=== PATIENT | female | born 1995 | race Caucasian/White ===

== ENCOUNTER 2020-02-15 07:03 | Inpatient (IN) | payer BC ==
[~2020-02-15 07:03] MED LIST: Bupivacaine 0.25% 10 ML SDV ONE
[2020-02-15] MEDS ORDERED: Lactated Ringers 1,000 ML ONE (07:30)
[2020-02-15] MEDS ORDERED: Sodium Chloride 0.9% 10 ML Syringe FLUSH PRN (07:38)
[2020-02-15] MEDS ORDERED: Ampicillin 2 GM in Sodium Chloride 0.9% 100 ML IV ONE (07:38)
[2020-02-15] MEDS ORDERED: Nalbuphine 10 MG/1 ML Vial IVPUSH PRN (07:38)
[2020-02-15] MEDS ORDERED: Acetaminophen 325 MG Tab PO PRN ×2 (07:38→18:39)
[2020-02-15] MEDS ORDERED: Bupivacaine/fentaNYL/NS 100 ML Bag EPIDUR PRN ×2 (07:44→12:20)
[2020-02-15] MEDS ORDERED: fentaNYL 100 MCG/2 ML SDV EPIDUR PRN ×2 (07:44→12:20)
[2020-02-15] MEDS ORDERED: diphenhydrAMINE 50 MG/ML SDV IVPUSH PRN ×2 (07:44→12:20)
[2020-02-15] MEDS ORDERED: ePHEDrine 50 MG/ML SDV IVPUSH PRN ×2 (07:44→12:20)
[2020-02-15] MEDS ORDERED: Oxytocin/Lactated Ringers 10 UNIT/1,000 ML BAG IV SCH ×3 (07:45→18:39)
--- NOTE | 2020-02-15 07:50 | PCM.LDHP ---
L&D History of Present Illness - General Date of Service: 02/15/20 Admit Problem/Dx: Patient Status Order with Admit Dx/Problem 02/15/20 07:38 Patient Status [ADT] Routine Admission Diagnosis/Problem Admission Diagnosis/Problem 39 weeks gestation of Source of Information: Patient History Limitations: Reports: No Limitations - History of Present Illness Introduction:: Gabriela Puente is a 24-year-old at 39 weeks 3 days (ADELITA 02/19/2020) who presents for elective induction of labor. She has been having some irregular contractions but nothing regular. Denies any leaking of fluid or vaginal bleeding. Reports good movement. Timing/Duration: Reports: intermittent (Contractions) Quality: Reports: Pressure Severity: Mild Improves with: Reports: None Worsens with: Reports: None Associated Symptoms: Denies: vaginal bleeding, vaginal discharge, vaginal fluid Present Illness Comments:: Gabriela Puente is a 24-year-old G1, P0 at 39 weeks 3 days (ADELITA 02/19/2020) who presents for elective induction of labor. She has had routine care with myself, Dr. Lemons, starting at 12 weeks gestational age. She was diagnosed with chlamydia at her initial OB appointment and treated. She had to be retreated on 09/06/2019. She had negative test of cure x2 tests after the second treatment. She received Tdap vaccine on 12/09/2019. She received flu vaccine through work on 12/14/2019. She was diagnosed with COVID-19 on 10/27/2019 and did not have any long-term effects from this. Normal anatomy ultrasound with low- lying placenta initially with resolution on repeat examination. She had Prequel testing that was normal with a female . She had to moderate risk factors for preeclampsia and was started on aspirin 81 mg at 12 weeks gestational age. This is complicated by: * GBS positive status -patient with positive GBS swab at her appointment on 01/27/2020. Patient to be treated with antibiotics in labor * Chlamydia infection in first and second trimester -patient diagnosed with chlamydia on her initial exam as well as 1 month later. She was treated x2 treatments as well as her partner. She had negative test of cure x2 tests afterwards. * COVID-19 infection during -patient diagnosed with COVID-19 on 10/27/2019. She did not have any long-lasting effects after infection. * To moderate risk factors for preeclampsia -patient has to moderate risk factors for preeclampsia including obesity and nulliparous woman. She was started on aspirin 81 mg at her initial visit on 08/09/2019. * ASCUS Pap smear -patient with ASCUS Pap smear at her initial visit and recommend for repeat Pap smear after delivery THERAPIST PHYS history G1: Current labs Blood type: O+ Antibody screen: Negative First trimester hematocrit/hemoglobin: 43.5%/14.6 on 06/17/2019 Platelets: 384 on 06/17/2019 Urine culture: Mixed pawan suggestive of contamination Rubella status: Immune Hepatitis B surface antigen: Negative RPR: Negative HIV: Negative Gonorrhea: Negative on 08/09/2019 Chlamydia: Positive on 08/09/2019 Gonorrhea: Negative on 09/06/2019 Chlamydia: Positive on 09/06/2019 Genetic testing: Normal Prequel testing, female infant Anatomy ultrasound: Normal anatomy, no abnormalities, posterior placenta, no previa, 30th percentile on most recent ultrasound on 12/08/2019 One hour glucose tolerance test: 125 Second trimester hematocrit/hemoglobin: 40.3%/13.2 on 11/23/2019 Platelets: 411 on 11/23/2019 Gonorrhea: Negative on 11/18/2019 Chlamydia: Negative on 11/18/2019 Gonorrhea: Negative on 01/27/2020 Chlamydia: Negative on 01/27/2020 GBS status: Positive Past Medical History - Past Health History Medical/Surgical History: Denies Medical/Surgical History THERAPIST PHYS History: Reports: : 1 Para: 0 - Infectious Disease History Infectious Disease History: Reports: Other (See Below) (COVID-19 infection during ) - Past Surgical History HEENT Surgical History: Reports: None GI Surgical History: Reports: None Female Surgical History: Reports: None Social & Family History - Tobacco Use Tobacco Use Status *Q: Never Tobacco User Tobacco Use Within Last Twelve Months: No - Tobacco Core Measures Tobacco Use/Smoking Within Last 30 Days: No Smokeless Tobacco Use in Last 30 Days: No - Alcohol Use Alcohol Use History: No Alcohol Use in Last Twelve Months: No - Recreational Drug Use Recreational Drug Use: No Drug Use in Last 12 Months: No - Living Situation & Occupation Living situation: Reports: , with Spouse Occupation: Employed H&P Review of Systems - Review of Systems: Review Of Systems: See Below General: Denies: Fever, Chills, Malaise, Fatigue HEENT: Denies: Headaches, Rhinitis, Post Nasal Drip, Sinus Congestion, Sore Throat, Visual Changes Pulmonary: Denies: Shortness of Breath, Wheezing, Pleuritic Chest Pain, Cough Cardiovascular: Denies: Chest Pain, Palpitations, Dyspnea on Exertion, Orthopnea Gastrointestinal: Reports: Diarrhea. Denies: Abdominal Pain, Constipation, Nausea, Vomiting Genitourinary: Denies: Dysuria, Frequency, Burning, Pain, Urgency Musculoskeletal: Reports: Back Pain (and hip pain of ) Skin: Denies: Rash, Lesions Psychiatric: Denies: Depression, Anxiety Hematologic/Lymphatic: Denies: Anemia L&D Exam - Exam Exam: See Below - OB Specific Contraction Duration (sec): 45-75 Contraction Frequency (min): 5-20 Contraction Intensity: Mild Movement: Active Heart Tones: Present Heart Tones per Min: 140 (+15 x 15 accelerations, no decelerations) Heart Rate (FHR) Variability: Moderate (6-25 bmp) Presentation: Vertex Estimated Weight: 7.5-8 lbs by Leopolds - Lundberg Score Lundberg Score Cervix Position: Anterior Lundberg Score Consistency: Soft Lundberg Score Effacement: >80% (80%) Lundberg Score Dilation: 3-4 cm (4.5 cm) Lundberg Score Infant's Station: -2 Lundberg Score Total: 10 - Exam General: Alert, Oriented HEENT: Conjunctiva Clear, EOMI Neck: Supple, Trachea Midline Lungs: Clear to Auscultation, Normal Respiratory Effort Cardiovascular: Regular Rate, Regular Rhythm GI/Abdominal Exam: Soft, Non-Tender, No Distention, Other (Gravid). No: Guarding, Rigid, Rebound Genitourinary: Normal external exam Extremities: Normal Inspection, Non-Tender, Pedal Edema (1+) Skin: Warm, Dry, Intact Psychiatric: Alert, Normal Affect, Normal Mood - Problem List (1) 39 weeks gestation of SNOMED Code(s): 04654413 ICD Code: Z3A.39 - 39 WEEKS GESTATION OF Status: Acute Current Visit: Yes (2) GBS (group B Streptococcus carrier), +RV culture, currently SNOMED Code(s): 8685954078834, 935175823, 7524612665889 ICD Code: O99.820 - STREPTOCOCCUS B CARRIER STATE COMPLICATING Status: Acute Current Visit: Yes (3) Chlamydia infection affecting in second trimester SNOMED Code(s): 4547075250444 ICD Code: O98.812 - OTH MATERNAL INFEC/PARASTC DISEASES COMP PREG, SECOND TRI; A74.9 - CHLAMYDIAL INFECTION, UNSPECIFIED Status: Acute Current Visit: Yes (4) Obesity affecting SNOMED Code(s): 303232538650, 778594979504 ICD Code: O99.210 - OBESITY COMPLICATING , UNSPECIFIED TRIMESTER Status: Acute Current Visit: Yes (5) COVID-19 affecting in second trimester SNOMED Code(s): 656266600, 335856354 ICD Code: O98.512 - OTH VIRAL DISEASES COMPLICATING , SECOND TRIME STER; U07.1 - COVID-19 Status: Acute Current Visit: Yes Problem List Initiated/Reviewed/Updated: Yes Orders Last 24hrs: Active Orders 24 hr Category Date Time Status Patient Status [ADT] Routine ADT 02/15/20 07:38 Ordered Activity as Tolerated [RC] PFP Care 02/15/20 07:38 Ordered Communication Order [RC] ASDIRECTED Care 02/15/20 07:38 Ordered Communication Order [RC] ASDIRECTED Care 02/15/20 07:45 Active Cooling Warming Measures [RC] ASDIRECTED Care 02/15/20 07:45 Active Heart Tones [RC] ASDIRECTED Care 02/15/20 07:38 Ordered Heart Tones [RC] ASDIRECTED Care 02/15/20 07:38 Ordered Non Stress Test [RC] PER UNIT ROUTINE Care 02/15/20 07:38 Ordered Notify Provider Vital Signs [RC] PRN Care 02/15/20 07:40 Ordered Notify Provider [RC] ASDIRECTED Care 02/15/20 07:44 Active Notify Provider [RC] ASDIRECTED Care 02/15/20 07:45 Active Notify Provider [RC] PFP Care 02/15/20 07:38 Ordered Notify Provider [RC] PRN Care 02/15/20 07:38 Ordered Oxygen Therapy [RC] ASDIRECTED Care 02/15/20 07:44 Active Peripheral IV Care [RC] . DIRECTED Care 02/15/20 07:38 Ordered Pulse Oximetry [RC] ASDIRECTED Care 02/15/20 07:45 Active Pump Management, Intrathecal [RC] ASDIRECTED Care 02/15/20 07:39 Ordered Vital Signs [RC] PER UNIT ROUTINE Care 02/15/20 07:38 Ordered Vital Signs [RC] Q1H Care 02/15/20 07:44 Active Regular Diet [DIET] Diet 02/15/20 Breakfast Ordered CBC WITH AUTO DIFF [HEME] Routine Lab 02/15/20 07:38 Ordered COMPREHENSIVE METABOLIC PN,CMP [CHEM] Routine Lab 02/15/20 07:38 Ordered PROTEIN/CREATININE RATIO,URINE [URCHEM] Routine Lab 02/15/20 07:38 Ordered RAPID PLASMA REAGIN,RPR [CHEM] Routine Lab 02/15/20 07:38 Ordered Acetaminophen [TylenoL] Med 02/15/20 07:38 Ordered 650 mg PO Q6H PRN Ampicillin 1 gm Med 02/15/20 11:45 Ordered Sodium Chloride 0.9% [Normal Saline] 50 ml IV Q4H Ampicillin 2 gm Med 02/15/20 07:38 Ordered Sodium Chloride 0.9% [Normal Saline] 100 ml IV ONETIME Bupivacaine/fentaNYL/NS [fentaNYL/Bupivacaine/NS 2 MCG- Med 02/15/20 07:44 Ordered 0.125% 100 ML] 100 ml EPIDUR ASDIRECTED PRN Lactated Ringers [Ringers, Lactated] 1,000 ml Med 02/15/20 07:45 Ordered IV ASDIRECTED Nalbuphine [Nubain] Med 02/15/20 07:38 Ordered 10 mg IVPUSH Q2H PRN Oxytocin/Lactated Ringers [Pitocin in LR 10 Units/1,000 Med 02/15/20 07:45 Ordered ML] 10 unit in 1,000 ml IV .CONTINUOUS Oxytocin/Lactated Ringers [Pitocin in LR 10 Units/1,000 Med 02/15/20 07:45 Ordered ML] 10 unit in 1,000 ml IV TITRATE Sodium Chloride 0.9% [Saline Flush] Med 02/15/20 07:38 Ordered 10 ml FLUSH ASDIRECTED PRN diphenhydrAMINE [Benadryl] Med 02/15/20 07:44 Ordered 25 mg IVPUSH Q6H PRN ePHEDrine [ePHEDrine sulfate] Med 02/15/20 07:44 Ordered 5 mg IVPUSH ASDIRECTED PRN fentaNYL [Sublimaze] Med 02/15/20 07:44 Ordered 100 mcg EPIDUR Q3H PRN Electronic Heart Tones Ext w TOCO [WOMSER] Oth 02/15/20 07:38 Ordered Routine Electronic Heart Tones Internal [WOMSER] Per Unit Oth 02/15/20 07:38 Ordered Routine Peripheral IV Insertion Adult [OM.PC] Routine Oth 02/15/20 07:38 Ordered Resuscitation Status Routine Resus Stat 02/15/20 07:38 Ordered Medication Orders Acetaminophen (Tylenol) 650 mg PO Q6H PRN PRN Reason: Pain (Mild 1-3) and fever Diphenhydramine HCl (Benadryl) 25 mg IVPUSH Q6H PRN PRN Reason: pruritis Ephedrine Sulfate (Ephedrine Sulfate) 5 mg IVPUSH ASDIRECTED PRN PRN Reason: Hypotension Fentanyl (Sublimaze) 100 mcg EPIDUR Q3H PRN PRN Reason: Pain Fentanyl/Bupivacaine HCl (Fentanyl/Bupivacaine/Ns 2 Mcg-0.125% 100 Ml) 100 ml EPIDUR ASDIRECTED PRN PRN Reason: Pain Lactated Ringer's (Ringers, Lactated) 1,000 mls @ 100 mls/hr IV ASDIRECTED SAKINA Ampicillin Sodium 2 gm/ Sodium (Chloride) 100 mls @ 200 mls/hr IV ONETIME ONE Stop: 02/15/20 08:07 Ampicillin Sodium 1 gm/ Sodium (Chloride) 50 mls @ 100 mls/hr IV Q4H SAKINA Oxytocin/Lactated Ringer's (Pitocin In Lr 10 Units/1,000 Ml) 10 unit in 1,000 mls @ 12 mls/hr IV TITRATE SAKINA; Protocol Oxytocin/Lactated Ringer's (Pitocin In Lr 10 Units/1,000 Ml) 10 unit in 1,000 mls @ 100 mls/hr IV .CONTINUOUS SAKINA Nalbuphine HCl (Nubain) 10 mg IVPUSH Q2H PRN PRN Reason: Pain Sodium Chloride (Saline Flush) 10 ml FLUSH ASDIRECTED PRN PRN Reason: Keep Vein Open Assessment/Plan Comment:: Gabriela Puente is a 24-year-old G1, P0 at 39 weeks 3 days (ADELITA 02/19/2020) who presents for elective induction of labor Refer to observation for elective induction of labor Start Pitocin for induction of labor Continuous monitoring Place IV and have Lactated Ringer's at 125 ml/hr May have small amounts of regular diet Activity as tolerated May have epidural as desired Plans to breast-feed after delivery Start on ampicillin 2 g now and have 1 g every 4 hours after for GBS prophylaxis CBC, CMP, RPR and urine protein/creatinine ratio for routine labs. Patient had blood pressure of 136/74 on admission and will get the CMP and urine protein/creatinine ratio to monitor for any increased risk for preeclampsia Anticipate vaginal delivery unless otherwise indicated Kevan Lemons MD 8:13 AM 02/15/2020
[2020-02-15] MEDS: Lactated Ringers 1,000 ML IV SCH ×3 (08:32→14:25)
[2020-02-15] MEDS: Ampicillin 1 GM in Sodium Chloride 0.9% 50 ML IV SCH ×2 (12:21→15:59)
--- NOTE | 2020-02-15 13:06 | PCM.PREANE ---
Preanesthetic Assessment - Procedure Proposed Procedure: Epidural - Anesthesia/Transfusion/Family Hx Anesthesia History: Prior Anesthesia Without Reaction Family History of Anesthesia Reaction: No Transfusion History: No Prior Transfusion(s) - Review of Systems General: Fatigue Pulmonary: No Symptoms Cardiovascular: No Symptoms Gastrointestinal: Abdominal Pain (labor) Neurological: No Symptoms Other: Reports: None - Physical Assessment Vital Signs: Last Vital Signs Temp 36.9 C 02/15/20 07:40 Pulse 98 02/15/20 07:40 Resp 18 02/15/20 07:40 BP 136/74 02/15/20 07:40 Pulse Ox 98 02/15/20 07:40 Height: 1.6 m Weight: 104.326 kg ASA Class: 2 Mental Status: Alert & Oriented x3 Airway Class: Mallampati = 1 Dentition: Reports: Normal Dentition Thyro-Mental Finger Breadths: 3 Mouth Opening Finger Breadths: 3 ROM/Head Extension: Full Lungs: Clear to Auscultation, Normal Respiratory Effort Cardiovascular: Regular Rate, Regular Rhythm - Lab Values: Laboratory Last Values WBC 10.97 K/mm3 (3.98-10.04) H 02/15/20 07:55 RBC 4.27 M/mm3 (3.98-5.22) 02/15/20 07:55 Hgb 12.5 gm/dl (11.2-15.7) 02/15/20 07:55 Hct 38.8 % (34.1-44.9) 02/15/20 07:55 MCV 90.9 fl (79.4-94.8) 02/15/20 07:55 MCH 29.3 pg (25.6-32.2) 02/15/20 07:55 MCHC 32.2 g/dl (32.2-35.5) 02/15/20 07:55 RDW Std Deviation 44.8 fL (36.4-46.3) 02/15/20 07:55 Plt Count 328 K/mm3 (182-369) D 02/15/20 07:55 MPV 10.7 fl (9.4-12.3) 02/15/20 07:55 Neut % (Auto) 72.5 % (34.0-71.1) H 02/15/20 07:55 Lymph % (Auto) 16.8 % (19.3-51.7) L 02/15/20 07:55 [place] % (Auto) 8.5 % (4.7-12.5) 02/15/20 07:55 Eos % (Auto) 1.5 (0.7-5.8) 02/15/20 07:55 Baso % (Auto) 0.3 % (0.1-1.2) 02/15/20 07:55 Neut # (Auto) 7.97 K/mm3 (1.56-6.13) H 02/15/20 07:55 Lymph # (Auto) 1.84 K/mm3 (1.18-3.74) 02/15/20 07:55 [place] # (Auto) 0.93 K/mm3 (0.24-0.36) H 02/15/20 07:55 Eos # (Auto) 0.16 K/mm3 (0.04-0.36) 02/15/20 07:55 Baso # (Auto) 0.03 K/mm3 (0.01-0.08) 02/15/20 07:55 Sodium 135 mEq/L (136-145) L 02/15/20 07:55 Potassium 3.5 mEq/L (3.5-5.1) 02/15/20 07:55 Chloride 102 mEq/L (98-107) 02/15/20 07:55 Carbon Dioxide 20 mEq/L (21-32) L 02/15/20 07:55 Anion Gap 16.5 (5-15) H 02/15/20 07:55 BUN 8 mg/dL (7-18) 02/15/20 07:55 Creatinine 0.7 mg/dL (0.55-1.02) 02/15/20 07:55 Est Cr Clr Drug Dosing 101.63 mL/min 02/15/20 07:55 Estimated GFR (MDRD) > 60 mL/min (>60) 02/15/20 07:55 BUN/Creatinine Ratio 11.4 (14-18) L 02/15/20 07:55 Glucose 116 mg/dL (74-106) H 02/15/20 07:55 Calcium 8.6 mg/dL (8.5-10.1) 02/15/20 07:55 Total Bilirubin 0.4 mg/dL (0.2-1.0) 02/15/20 07:55 AST 18 U/L (15-37) 02/15/20 07:55 ALT 23 U/L (14-59) 02/15/20 07:55 Alkaline Phosphatase 120 U/L (46-116) H 02/15/20 07:55 Total Protein 6.4 g/dl (6.4-8.2) 02/15/20 07:55 Albumin 2.3 g/dl (3.4-5.0) L 02/15/20 07:55 Globulin 4.1 gm/dL 02/15/20 07:55 Albumin/Globulin Ratio 0.6 (1-2) L 02/15/20 07:55 Ur Random Creatinine 125.4 mg/dL (30.0-125.0) H 02/15/20 08:45 U Random Total Protein 14.1 mg/dL (0.0-11.8) H 02/15/20 08:45 Protein/Creatinin Ratio 112.4 mg/g (0-149) 02/15/20 08:45 SARS-CoV-2 RNA (RUTH) Negative (NEGATIVE) 02/15/20 07:30 - Allergies Allergies/Adverse Reactions: Allergies Allergy/AdvReac Type Severity Reaction Status Date / Time Sulfa (Sulfonamide Allergy Hives Verified 02/15/20 08:17 Antibiotics) - Anesthesia Plan Pre-Op Medication Ordered: None - Acknowledgements Anesthesia Type Planned: Epidural Pt an Appropriate Candidate for the Planned Anesthesia: Yes Alternatives and Risks of Anesthesia Discussed w Pt/Guardian: Yes Pt/Guardian Understands and Agrees with Anesthesia Plan: Yes PreAnesthesia Questionnaire - Past Health History Medical/Surgical History: Denies Medical/Surgical History Gastrointestinal History: Reports: GERD BUSINESS INTERN History: Reports: - Infectious Disease History Infectious Disease History: Reports: Other (See Below) (COVID-19 infection during ) Other Infectious Disease History: covid in Oct 2019 - Past Surgical History HEENT Surgical History: Reports: None GI Surgical History: Reports: None Female Surgical History: Reports: None - SUBSTANCE USE Tobacco Use Status *Q: Never Tobacco User Tobacco Use Within Last Twelve Months: No Second Hand Smoke Exposure: No Recreational Drug Use History: No - HOME MEDS Home Medications: Home Meds Vit with Ca/FA/Iron [ Plus Iron] 1 .ROUTE DAILY 02/15/20 [History] - CURRENT (IN HOUSE) MEDS Current Meds: Current Medications Acetaminophen (Tylenol) 650 mg PO Q6H PRN PRN Reason: Pain (Mild 1-3) and fever Diphenhydramine HCl (Benadryl) 25 mg IVPUSH Q6H PRN PRN Reason: pruritis Diphenhydramine HCl (Benadryl) 25 mg IVPUSH Q6H PRN PRN Reason: pruritis Ephedrine Sulfate (Ephedrine Sulfate) 5 mg IVPUSH ASDIRECTED PRN PRN Reason: Hypotension Ephedrine Sulfate (Ephedrine Sulfate) 5 mg IVPUSH ASDIRECTED PRN PRN Reason: Hypotension Fentanyl (Sublimaze) 100 mcg EPIDUR Q3H PRN PRN Reason: Pain Last Admin: 02/15/20 12:05 Dose: 100 mcg Documented by: Fentanyl (Sublimaze) 100 mcg EPIDUR Q3H PRN PRN Reason: Pain Fentanyl/Bupivacaine HCl (Fentanyl/Bupivacaine/Ns 2 Mcg-0.125% 100 Ml) 100 ml EPIDUR ASDIRECTED PRN PRN Reason: Pain Last Admin: 02/15/20 12:05 Dose: 100 ml Documented by: Fentanyl/Bupivacaine HCl (Fentanyl/Bupivacaine/Ns 2 Mcg-0.125% 100 Ml) 100 ml EPIDUR ASDIRECTED PRN PRN Reason: Pain Lactated Ringer's (Ringers, Lactated) 1,000 mls @ 100 mls/hr IV ASDIRECTED SAKINA Last Admin: 02/15/20 12:24 Dose: 100 mls/hr Documented by: Ampicillin Sodium 1 gm/ Sodium (Chloride) 50 mls @ 100 mls/hr IV Q4H SAKINA Last Admin: 02/15/20 12:21 Dose: 100 mls/hr Documented by: Oxytocin/Lactated Ringer's (Pitocin In Lr 10 Units/1,000 Ml) 10 unit in 1,000 mls @ 12 mls/hr IV TITRATE SAKINA; Protocol Last Titration: 02/15/20 11:16 Dose: 10 munits/min, 60 mls/hr Documented by: Oxytocin/Lactated Ringer's (Pitocin In Lr 10 Units/1,000 Ml) 10 unit in 1,000 mls @ 100 mls/hr IV .CONTINUOUS SAKINA Nalbuphine HCl (Nubain) 10 mg IVPUSH Q2H PRN PRN Reason: Pain Sodium Chloride (Saline Flush) 10 ml FLUSH ASDIRECTED PRN PRN Reason: Keep Vein Open Discontinued Medications Lactated Ringer's (Ringers, Lactated) Confirm Administered Dose 1,000 mls @ as directed .ROUTE .STK-MED ONE Stop: 02/15/20 07:31 Last Admin: 02/15/20 08:27 Dose: Not Given Documented by: Ampicillin Sodium 2 gm/ Sodium (Chloride) 100 mls @ 200 mls/hr IV ONETIME ONE Stop: 02/15/20 08:07 Last Admin: 02/15/20 08:32 Dose: 200 mls/hr Documented by:
--- NOTE | 2020-02-15 13:14 | PCM.PNLD ---
Labor Progress Note - VS & Meds Vital Signs: Last Vital Signs Temp 36.9 C 02/15/20 07:40 Pulse 98 02/15/20 07:40 Resp 18 02/15/20 07:40 BP 136/74 02/15/20 07:40 Pulse Ox 98 02/15/20 07:40 Active Medications: Current Medications Acetaminophen (Tylenol) 650 mg PO Q6H PRN PRN Reason: Pain (Mild 1-3) and fever Diphenhydramine HCl (Benadryl) 25 mg IVPUSH Q6H PRN PRN Reason: pruritis Diphenhydramine HCl (Benadryl) 25 mg IVPUSH Q6H PRN PRN Reason: pruritis Ephedrine Sulfate (Ephedrine Sulfate) 5 mg IVPUSH ASDIRECTED PRN PRN Reason: Hypotension Ephedrine Sulfate (Ephedrine Sulfate) 5 mg IVPUSH ASDIRECTED PRN PRN Reason: Hypotension Fentanyl (Sublimaze) 100 mcg EPIDUR Q3H PRN PRN Reason: Pain Last Admin: 02/15/20 12:05 Dose: 100 mcg Documented by: Fentanyl (Sublimaze) 100 mcg EPIDUR Q3H PRN PRN Reason: Pain Fentanyl/Bupivacaine HCl (Fentanyl/Bupivacaine/Ns 2 Mcg-0.125% 100 Ml) 100 ml EPIDUR ASDIRECTED PRN PRN Reason: Pain Last Admin: 02/15/20 12:05 Dose: 100 ml Documented by: Fentanyl/Bupivacaine HCl (Fentanyl/Bupivacaine/Ns 2 Mcg-0.125% 100 Ml) 100 ml EPIDUR ASDIRECTED PRN PRN Reason: Pain Lactated Ringer's (Ringers, Lactated) 1,000 mls @ 100 mls/hr IV ASDIRECTED SAKINA Last Admin: 02/15/20 12:24 Dose: 100 mls/hr Documented by: Ampicillin Sodium 1 gm/ Sodium (Chloride) 50 mls @ 100 mls/hr IV Q4H SAKINA Last Admin: 02/15/20 12:21 Dose: 100 mls/hr Documented by: Oxytocin/Lactated Ringer's (Pitocin In Lr 10 Units/1,000 Ml) 10 unit in 1,000 mls @ 12 mls/hr IV TITRATE SAKINA; Protocol Last Titration: 02/15/20 11:16 Dose: 10 munits/min, 60 mls/hr Documented by: Oxytocin/Lactated Ringer's (Pitocin In Lr 10 Units/1,000 Ml) 10 unit in 1,000 mls @ 100 mls/hr IV .CONTINUOUS SAKINA Nalbuphine HCl (Nubain) 10 mg IVPUSH Q2H PRN PRN Reason: Pain Sodium Chloride (Saline Flush) 10 ml FLUSH ASDIRECTED PRN PRN Reason: Keep Vein Open Discontinued Medications Lactated Ringer's (Ringers, Lactated) Confirm Administered Dose 1,000 mls @ as directed .ROUTE .STK-MED ONE Stop: 02/15/20 07:31 Last Admin: 02/15/20 08:27 Dose: Not Given Documented by: Ampicillin Sodium 2 gm/ Sodium (Chloride) 100 mls @ 200 mls/hr IV ONETIME ONE Stop: 02/15/20 08:07 Last Admin: 02/15/20 08:32 Dose: 200 mls/hr Documented by: - Uterine Contractions Contraction Frequency (min): 2-3 Contraction Duration (sec): 60-75 Contraction Intensity: Moderate to Strong Uterine Resting Tone: Soft - Monitoring Monitor Mode: Doppler/Auscultation Heart Rate (FHR) Baseline: 140 Heart Rate (FHR) Per Doppler: 140 Heart Rate (FHR) Variability: Moderate (6-25 bmp) Accelerations: Present, 15x15 Decelerations: None Strip Review: Category I - Vaginal Exam Dilation (cm): 6 Effacement (Percent): 80 Station: -1 Cervical Position: Anterior Sterile Vaginal Exam Performed By: Kevan Lemons Vaginal Exam Comment: Artificial rupture of membranes performed with [place]. Return of small amount of clear fluid. Mother and infant tolerated without difficulty. - Labor Progress (Free Text) Labor Progress: Gabriela Puente is a 24 year old female at 39 weeks 3 days (ADELITA 02/19/2020) undergoing elective induction of labor Patient making some progress with pitocin for induction of labor Patient received epidural for anesthesia Routine vitals Continuous monitoring Artificial rupture of membranes with return of clear fluid Continue Ampicillin for GBS prophylaxis Anticipate vaginal delivery unless otherwise indicated Kevan Lemons MD 1:14 PM 02/15/2020
--- NOTE | 2020-02-15 18:37 | PCM.DEL ---
L & D Note - General Info Date of Service: 02/15/20 Mother's Due Date: 02/19/20 - Delivery Note Labor: Augmented by ARM, Induced by Oxytocin Delivery Outcome: Livebirth Delivery Method: Spontaneous Vaginal Delivery-Single Presentation: Right Occiput Anterior (JENNA) Nuchal Cord: None Anesthesia Type: Epidural Amniotic Fluid Description: Clear Episiotomy Type: None Laceration: 2nd Degree (left perineal, repaired with 3-0 Vicryl), Labial (bilat eral medial labial, hemostatic, not repaired) Suture type: Vicryl Suture size: 3-0 Placenta: Intact, Spontaneous Cord: 3 Vessels Estimated Blood Loss: 300 Resuscitation Needed: Yes : Suctioned, Bulb Syringe, Stimulated, Warmed, [place] Used, Warmer Used Provider: Kevan Lemons Score 1 min: 5 Score 5 min: 9 Second Stage Interventions: Reports: Pushing Effectively, Pushing, Stirrups/Leg Supports Delivery Comments (Free Text/Narrative):: Stage I: Gabriela Puente was admitted for elective induction of labor. On admission her cervix was dilated to 4 to 5 cm. She was GBS positive and was started on ampicillin for GBS prophylaxis. She received a total of 3 doses pr ior to delivery. She was started on Pitocin for induction of labor. She was given an epidural for anesthesia. She had artificial rupture of membranes with return of clear fluid. She progressed to complete and pushing. Stage II: On 02/15/2020 she had a normal vaginal delivery of a live female infant at 17:47. Apgars of 5 & 9. Weight of 2940 g (6 lbs 7.7 oz). Length of 20.5 inches. There was no nuchal cord. Infant was delivered in JENNA position. The cord was doubly clamped and cut by other the . Infant was placed on mother's abdomen initially and then taken to the warmer for further resuscitation. Stage III: She had a spontaneous delivery of an intact placenta in Damian presentation. Three vessel cord. She was given pitocin and fundal massage. She had a second-degree left perineal laceration that was repaired with 3-0 Vicryl. She had bilateral medial labial lacerations that were hemostatic and not repaired. Mom and baby were stable to recovery. Waste Water Worker, Dr. Garcia, noted that there was abnormality of the infant's vaginal introitus with possible vaginal cyst versus imperforate hymen. EBL of 300 mL. Kevan Lemons MD 6:35 PM 02/15/2020 Induction Criteria - Lundberg Score Lundberg Score Dilation: 3-4 cm (4.5) Lundberg Score Effacement: >80% (80) Lundberg Score Infant's Station: -2 Lundberg Score Consistency: Soft Lundberg Score Cervix Position: Anterior Lundberg Score Total: 10 - Induction Gestational Age >/= 39 wks: Yes Estimated Pelvis: Reports: Adequate Reassuring Monitoring Strip: Yes Absence of Tachy Systole: Yes - Augmentation Estimated Pelvis: Reports: Adequate Weight Estimated:: Reports: AGA Reassuring Monitoring Strip: Yes Absence of Tachy Systole: Yes - General Info Date of Service: 02/15/20 - Patient Data Vitals - Most Recent: Last Vital Signs Temp 36.9 C 02/15/20 07:40 Pulse 98 02/15/20 07:40 Resp 18 02/15/20 07:40 BP 136/74 02/15/20 07:40 Pulse Ox 98 02/15/20 07:40 Weight - Most Recent: 104.326 kg I&O - Last 24 Hours: Intake & Output 02/15/20 02/15/20 02/15/20 06:59 14:59 22:59 Intake Total 2200 100 Balance 2200 100 Lab Results Last 24 Hours: Laboratory Results - last 24 hr 02/15/20 02/15/20 02/15/20 Range/Units 07:30 07:55 07:55 WBC 10.97 H (3.98-10.04) K/mm3 RBC 4.27 (3.98-5.22) M/mm3 Hgb 12.5 (11.2-15.7) gm/dl Hct 38.8 (34.1-44.9) % MCV 90.9 (79.4-94.8) fl MCH 29.3 (25.6-32.2) pg MCHC 32.2 (32.2-35.5) g/dl RDW Std Deviation 44.8 (36.4-46.3) fL Plt Count 328 D (182-369) K/mm3 MPV 10.7 (9.4-12.3) fl Neut % (Auto) 72.5 H (34.0-71.1) % Lymph % (Auto) 16.8 L (19.3-51.7) % [place] % (Auto) 8.5 (4.7-12.5) % Eos % (Auto) 1.5 (0.7-5.8) Baso % (Auto) 0.3 (0.1-1.2) % Neut # (Auto) 7.97 H (1.56-6.13) K/mm3 Lymph # (Auto) 1.84 (1.18-3.74) K/mm3 [place] # (Auto) 0.93 H (0.24-0.36) K/mm3 Eos # (Auto) 0.16 (0.04-0.36) K/mm3 Baso # (Auto) 0.03 (0.01-0.08) K/mm3 Sodium 135 L (136-145) mEq/L Potassium 3.5 (3.5-5.1) mEq/L Chloride 102 (98-107) mEq/L Carbon Dioxide 20 L (21-32) mEq/L Anion Gap 16.5 H (5-15) BUN 8 (7-18) mg/dL Creatinine 0.7 (0.55-1.02) mg/dL Est Cr Clr Drug Dosing 101.63 mL/min Estimated GFR (MDRD) > 60 (>60) mL/min BUN/Creatinine Ratio 11.4 L (14-18) Glucose 116 H (74-106) mg/dL Calcium 8.6 (8.5-10.1) mg/dL Total Bilirubin 0.4 (0.2-1.0) mg/dL AST 18 (15-37) U/L ALT 23 (14-59) U/L Alkaline Phosphatase 120 H (46-116) U/L Total Protein 6.4 (6.4-8.2) g/dl Albumin 2.3 L (3.4-5.0) g/dl Globulin 4.1 gm/dL Albumin/Globulin Ratio 0.6 L (1-2) Ur Random Creatinine (30.0-125.0) mg/dL U Random Total Protein (0.0-11.8) mg/dL Protein/Creatinin Ratio (0-149) mg/g SARS-CoV-2 RNA (RUTH) Negative (NEGATIVE) 02/15/20 Range/Units 08:45 WBC (3.98-10.04) K/mm3 RBC (3.98-5.22) M/mm3 Hgb (11.2-15.7) gm/dl Hct (34.1-44.9) % MCV (79.4-94.8) fl MCH (25.6-32.2) pg MCHC (32.2-35.5) g/dl RDW Std Deviation (36.4-46.3) fL Plt Count (182-369) K/mm3 MPV (9.4-12.3) fl Neut % (Auto) (34.0-71.1) % Lymph % (Auto) (19.3-51.7) % [place] % (Auto) (4.7-12.5) % Eos % (Auto) (0.7-5.8) Baso % (Auto) (0.1-1.2) % Neut # (Auto) (1.56-6.13) K/mm3 Lymph # (Auto) (1.18-3.74) K/mm3 [place] # (Auto) (0.24-0.36) K/mm3 Eos # (Auto) (0.04-0.36) K/mm3 Baso # (Auto) (0.01-0.08) K/mm3 Sodium (136-145) mEq/L Potassium (3.5-5.1) mEq/L Chloride (98-107) mEq/L Carbon Dioxide (21-32) mEq/L Anion Gap (5-15) BUN (7-18) mg/dL Creatinine (0.55-1.02) mg/dL Est Cr Clr Drug Dosing mL/min Estimated GFR (MDRD) (>60) mL/min BUN/Creatinine Ratio (14-18) Glucose (74-106) mg/dL Calcium (8.5-10.1) mg/dL Total Bilirubin (0.2-1.0) mg/dL AST (15-37) U/L ALT (14-59) U/L Alkaline Phosphatase (46-116) U/L Total Protein (6.4-8.2) g/dl Albumin (3.4-5.0) g/dl Globulin gm/dL Albumin/Globulin Ratio (1-2) Ur Random Creatinine 125.4 H (30.0-125.0) mg/dL U Random Total Protein 14.1 H (0.0-11.8) mg/dL Protein/Creatinin Ratio 112.4 (0-149) mg/g SARS-CoV-2 RNA (RUTH) (NEGATIVE) Med Orders - Current: Current Medications Acetaminophen (Tylenol) 650 mg PO Q6H PRN PRN Reason: Pain (Mild 1-3) and fever Diphenhydramine HCl (Benadryl) 25 mg IVPUSH Q6H PRN PRN Reason: pruritis Ephedrine Sulfate (Ephedrine Sulfate) 5 mg IVPUSH ASDIRECTED PRN PRN Reason: Hypotension Fentanyl (Sublimaze) 100 mcg EPIDUR Q3H PRN PRN Reason: Pain Last Admin: 02/15/20 12:05 Dose: 100 mcg Documented by: Fentanyl/Bupivacaine HCl (Fentanyl/Bupivacaine/Ns 2 Mcg-0.125% 100 Ml) 100 ml EPIDUR ASDIRECTED PRN PRN Reason: Pain Last Admin: 02/15/20 12:05 Dose: 100 ml Documented by: Lactated Ringer's (Ringers, Lactated) 1,000 mls @ 100 mls/hr IV ASDIRECTED SAKINA Last Admin: 02/15/20 14:25 Dose: 100 mls/hr Documented by: Ampicillin Sodium 1 gm/ Sodium (Chloride) 50 mls @ 100 mls/hr IV Q4H SAKINA Last Admin: 02/15/20 15:59 Dose: 100 mls/hr Documented by: Oxytocin/Lactated Ringer's (Pitocin In Lr 10 Units/1,000 Ml) 10 unit in 1,000 mls @ 12 mls/hr IV TITRATE SAKINA; Protocol Last Titration: 02/15/20 11:16 Dose: 10 munits/min, 60 mls/hr Documented by: Oxytocin/Lactated Ringer's (Pitocin In Lr 10 Units/1,000 Ml) 10 unit in 1,000 mls @ 100 mls/hr IV .CONTINUOUS SAKINA Nalbuphine HCl (Nubain) 10 mg IVPUSH Q2H PRN PRN Reason: Pain Sodium Chloride (Saline Flush) 10 ml FLUSH ASDIRECTED PRN PRN Reason: Keep Vein Open Discontinued Medications Diphenhydramine HCl (Benadryl) 25 mg IVPUSH Q6H PRN PRN Reason: pruritis Ephedrine Sulfate (Ephedrine Sulfate) 5 mg IVPUSH ASDIRECTED PRN PRN Reason: Hypotension Fentanyl (Sublimaze) 100 mcg EPIDUR Q3H PRN PRN Reason: Pain Fentanyl/Bupivacaine HCl (Fentanyl/Bupivacaine/Ns 2 Mcg-0.125% 100 Ml) 100 ml EPIDUR ASDIRECTED PRN PRN Reason: Pain Lactated Ringer's (Ringers, Lactated) Confirm Administered Dose 1,000 mls @ as directed .ROUTE .STK-MED ONE Stop: 02/15/20 07:31 Last Admin: 02/15/20 08:27 Dose: Not Given Documented by: Ampicillin Sodium 2 gm/ Sodium (Chloride) 100 mls @ 200 mls/hr IV ONETIME ONE Stop: 02/15/20 08:07 Last Admin: 02/15/20 08:32 Dose: 200 mls/hr Documented by: - Problem List & Annotations (1) 39 weeks gestation of SNOMED Code(s): 11244268 Code(s): Z3A.39 - 39 WEEKS GESTATION OF Status: Acute Current Visit: Yes (2) GBS (group B Streptococcus carrier), +RV culture, currently SNOMED Code(s): 6771224046967, 666579066, 0326961080225 Code(s): O99.820 - STREPTOCOCCUS B CARRIER STATE COMPLICATING Status: Acute Current Visit: Yes (3) Chlamydia infection affecting in second trimester SNOMED Code(s): 6938954011560 Code(s): O98.812 - OTH MATERNAL INFEC/PARASTC DISEASES COMP PREG, SECOND TRI; A74.9 - CHLAMYDIAL INFECTION, UNSPECIFIED Status: Acute Current Visit: Yes (4) Obesity affecting SNOMED Code(s): 948840506494, 187923686073 Code(s): O99.210 - OBESITY COMPLICATING , UNSPECIFIED TRIMESTER Status: Acute Current Visit: Yes (5) COVID-19 affecting in second trimester SNOMED Code(s): 220476913, 256332787 Code(s): O98.512 - OTH VIRAL DISEASES COMPLICATING , SECOND TRIMESTER; U07.1 - COVID-19 Status: Acute Current Visit: Yes (6) Vaginal delivery SNOMED Code(s): 625263649 Code(s): O80 - ENCOUNTER FOR FULL-TERM UNCOMPLICATED DELIVERY Status: Acute Current Visit: Yes (7) Second degree perineal laceration during delivery SNOMED Code(s): 8744100 Code(s): O70.1 - SECOND DEGREE PERINEAL LACERATION DURING DELIVERY Status: Acute Current Visit: Yes - Problem List Review Problem List Initiated/Reviewed/Updated: Yes - My Orders Last 24 Hours: My Active Orders 02/15/20 Breakfast Regular Diet [DIET] 02/15/20 07:38 Patient Status [ADT] Routine Activity as Tolerated [RC] PFP Communication Order [RC] ASDIRECTED Heart Tones [RC] ASDIRECTED Notify Provider [RC] PFP Notify Provider [RC] PRN Peripheral IV Care [RC] . DIRECTED Vital Signs [RC] PER UNIT ROUTINE Acetaminophen [TylenoL] 650 mg PO Q6H PRN Nalbuphine [Nubain] 10 mg IVPUSH Q2H PRN Sodium Chloride 0.9% [Saline Flush] 10 ml FLUSH ASDIRECTED PRN Electronic Heart Tones Ext w TOCO [WOMSER] Routine Electronic Heart Tones Internal [WOMSER] Per Unit Routine Peripheral IV Insertion Adult [OM.PC] Routine Resuscitation Status Routine 02/15/20 07:39 Pump Management, Intrathecal [RC] ASDIRECTED 02/15/20 07:40 Notify Provider Vital Signs [RC] PRN 02/15/20 07:45 Lactated Ringers [Ringers, Lactated] 1,000 ml IV ASDIRECTED Oxytocin/Lactated Ringers [Pitocin in LR 10 Units/1,000 ML] 10 unit in 1,000 ml IV .CONTINUOUS Oxytocin/Lactated Ringers [Pitocin in LR 10 Units/1,000 ML] 10 unit in 1,000 ml IV TITRATE 02/15/20 07:55 RAPID PLASMA REAGIN,RPR [CHEM] Routine 02/15/20 12:00 Ampicillin 1 gm Sodium Chloride 0.9% [Normal Saline] 50 ml IV Q4H 02/15/20 18:19 Patient Status Manage Transfer [TRANSFER] Routine - Plan Plan:: Gabriela Puente is a 24-year-old now -0-0-1 status post , PPD #0 complicated by GBS positive and received 3 doses of ampicillin prior to delivery, chlamydia infection during second trimester of , maternal obesity, COVID-19 infection during second trimester of and with vaginal cyst versus imperforate hymen noted at time of delivery Admit to inpatient following normal spontaneous vaginal delivery Continue Pitocin per unit protocol following delivery of placenta and lactated Ringer's until tolerating regular diet Regular diet Vitals per unit routine Ibuprofen and Tylenol for pain control Assist with breast-feeding as needed Continue to monitor lochia Anticipate discharge home on day #2 Kevan Lemons MD 6:35 PM 02/15/2020
[2020-02-15] MEDS ORDERED: Hydrocortisone Acetate 25 MG Supp RECTAL PRN (18:39)
[2020-02-15] MEDS ORDERED: Docusate Sodium 100 MG Cap PO PRN (18:39)
[2020-02-15] MEDS ORDERED: Benzocaine/Menthol 20%-0.5% Spray 56 GM Canister TOP PRN (18:39)
[2020-02-15] MEDS ORDERED: Magnesium Hydroxide 400 MG/5 ML Susp 30 ML Cup PO PRN (18:39)
[2020-02-15] MEDS ORDERED: Witch Hazel Medicated Pads 40/Jar TOP PRN (18:39)
[2020-02-15] MEDS: Ibuprofen 600 MG Tab PO PRN (19:16)
[2020-02-16] MEDS: Ibuprofen 600 MG Tab PO PRN ×3 (06:20→21:25)
--- NOTE | 2020-02-16 07:21 | PCM48HPAN ---
Post Anesthesia Note - EVALUATION WITHIN 48HRS OF ANESTHETIC Vital Signs in Normal Range: Yes Patient Participated in Evaluation: Yes Respiratory Function Stable: Yes Airway Patent: Yes Cardiovascular Function Stable: Yes Hydration Status Stable: Yes Pain Control Satisfactory: Yes Nausea and Vomiting Control Satisfactory: Yes Mental Status Recovered: Yes Vital Signs: Last Vital Signs Temp 36.7 C 02/16/20 03:28 Pulse 96 02/16/20 03:28 Resp 16 02/16/20 03:28 BP 121/71 02/16/20 03:28 Pulse Ox 98 02/16/20 03:28
--- NOTE | 2020-02-16 07:54 | PCM.SN.2 ---
- Free Text/Narrative Note: Post Progress Note PPD #1 Subjective: Doing well overall. Ambulating without difficulty. Lochia minimal. Voiding without difficulty. Tolerating regular diet without nausea or vomiting. Pain controlled with oral medications. Reports only having some mild cramping and low back pain after delivery. She took ibuprofen this morning that helped with her pain. Breast-feeding with some difficulty overnight with having difficulty latching. Objective: Vitals: Vital Signs - 24 hr 02/16/20 03:28 Temperature 36.7 C Pulse, 96 Peripheral Respiratory 16 Rate Blood Pressure 121/71 O2 Sat by Pulse 98 Oximetry Physical Exam General: Alert and oriented, no acute distress Lungs: Clear to auscultation bilaterally Heart: Regular rate and rhythm Abdomen: Soft, minimal appropriate tenderness, non-distended, fundus midline, nontender, and at the umbilicus Extremities: Trace edema in bilateral lower extremities to mid shins Laboratory Tests 02/15/20 02/15/20 02/15/20 Range/Units 07:30 07:55 07:55 WBC 10.97 H (3.98-10.04) K/mm3 RBC 4.27 (3.98-5.22) M/mm3 Hgb 12.5 (11.2-15.7) gm/dl Hct 38.8 (34.1-44.9) % MCV 90.9 (79.4-94.8) fl MCH 29.3 (25.6-32.2) pg MCHC 32.2 (32.2-35.5) g/dl RDW Std Deviation 44.8 (36.4-46.3) fL Plt Count 328 D (182-369) K/mm3 MPV 10.7 (9.4-12.3) fl Neut % (Auto) 72.5 H (34.0-71.1) % Lymph % (Auto) 16.8 L (19.3-51.7) % [place] % (Auto) 8.5 (4.7-12.5) % Eos % (Auto) 1.5 (0.7-5.8) Baso % (Auto) 0.3 (0.1-1.2) % Neut # (Auto) 7.97 H (1.56-6.13) K/mm3 Lymph # (Auto) 1.84 (1.18-3.74) K/mm3 [place] # (Auto) 0.93 H (0.24-0.36) K/mm3 Eos # (Auto) 0.16 (0.04-0.36) K/mm3 Baso # (Auto) 0.03 (0.01-0.08) K/mm3 Sodium 135 L (136-145) mEq/L Potassium 3.5 (3.5-5.1) mEq/L Chloride 102 (98-107) mEq/L Carbon Dioxide 20 L (21-32) mEq/L Anion Gap 16.5 H (5-15) BUN 8 (7-18) mg/dL Creatinine 0.7 (0.55-1.02) mg/dL Est Cr Clr Drug Dosing 101.63 mL/min Estimated GFR (MDRD) > 60 (>60) mL/min BUN/Creatinine Ratio 11.4 L (14-18) Glucose 116 H (74-106) mg/dL Calcium 8.6 (8.5-10.1) mg/dL Total Bilirubin 0.4 (0.2-1.0) mg/dL AST 18 (15-37) U/L ALT 23 (14-59) U/L Alkaline Phosphatase 120 H (46-116) U/L Total Protein 6.4 (6.4-8.2) g/dl Albumin 2.3 L (3.4-5.0) g/dl Globulin 4.1 gm/dL Albumin/Globulin Ratio 0.6 L (1-2) Ur Random Creatinine (30.0-125.0) mg/dL U Random Total Protein (0.0-11.8) mg/dL Protein/Creatinin Ratio (0-149) mg/g RPR (NONREACTIVE) SARS-CoV-2 RNA (RUTH) Negative (NEGATIVE) 02/15/20 02/15/20 Range/Units 07:55 08:45 WBC (3.98-10.04) K/mm3 RBC (3.98-5.22) M/mm3 Hgb (11.2-15.7) gm/dl Hct (34.1-44.9) % MCV (79.4-94.8) fl MCH (25.6-32.2) pg MCHC (32.2-35.5) g/dl RDW Std Deviation (36.4-46.3) fL Plt Count (182-369) K/mm3 MPV (9.4-12.3) fl Neut % (Auto) (34.0-71.1) % Lymph % (Auto) (19.3-51.7) % [place] % (Auto) (4.7-12.5) % Eos % (Auto) (0.7-5.8) Baso % (Auto) (0.1-1.2) % Neut # (Auto) (1.56-6.13) K/mm3 Lymph # (Auto) (1.18-3.74) K/mm3 [place] # (Auto) (0.24-0.36) K/mm3 Eos # (Auto) (0.04-0.36) K/mm3 Baso # (Auto) (0.01-0.08) K/mm3 Sodium (136-145) mEq/L Potassium (3.5-5.1) mEq/L Chloride (98-107) mEq/L Carbon Dioxide (21-32) mEq/L Anion Gap (5-15) BUN (7-18) mg/dL Creatinine (0.55-1.02) mg/dL Est Cr Clr Drug Dosing mL/min Estimated GFR (MDRD) (>60) mL/min BUN/Creatinine Ratio (14-18) Glucose (74-106) mg/dL Calcium (8.5-10.1) mg/dL Total Bilirubin (0.2-1.0) mg/dL AST (15-37) U/L ALT (14-59) U/L Alkaline Phosphatase (46-116) U/L Total Protein (6.4-8.2) g/dl Albumin (3.4-5.0) g/dl Globulin gm/dL Albumin/Globulin Ratio (1-2) Ur Random Creatinine 125.4 H (30.0-125.0) mg/dL U Random Total Protein 14.1 H (0.0-11.8) mg/dL Protein/Creatinin Ratio 112.4 (0-149) mg/g RPR Non-reactive (NONREACTIVE) SARS-CoV-2 RNA (RUTH) (NEGATIVE) ASSESSMENT: Gabriela Puente is a 24-year-old -0-0-1 status post , PPD #1 complicated by GBS positive and received 3 doses of ampicillin prior to delivery, chlamydia infection during second trimester of , maternal obesity, COVID-19 infection during second trimester of and infant with vaginal cyst versus imperforate hymen noted at time of delivery PLAN: Doing well Breast-feeding with some difficulty with having difficulty latching. Assist and work with patient as needed Lochia minimal. Continue to monitor for appropriate lochia. Continue routine care Anticipate discharge home tomorrow Kevan Lemons MD 7:53 AM 02/16/2020
[2020-02-16] MEDS: Prenatal Multivitamin with Calcium/Folic Acid/Iron Tab PO SCH (08:48)
[2020-02-17] MEDS: Ibuprofen 600 MG Tab PO PRN (07:44)
--- NOTE | 2020-02-17 08:41 | PCM.SN.2 ---
- Free Text/Narrative Note: Post Progress Note PPD #2 Subjective: Doing well overall. Ambulating without difficulty. Lochia minimal. Voiding without difficulty. Tolerating regular diet without nausea or vomiting. Pain controlled with oral medications. Breast-feeding and pumping breastmilk without difficulty. Objective: Vitals: Vital Signs - 24 hr 02/16/20 02/16/20 02/16/20 08:45 15:34 21:20 Temperature 36.5 C 36.5 C 36.8 C Pulse, 70 78 105 H Peripheral Respiratory 16 16 14 Rate Blood Pressure 102/63 112/74 120/63 O2 Sat by Pulse 98 95 94 L Oximetry 02/17/20 05:00 Temperature 36.7 C Pulse, 88 Peripheral Respiratory 16 Rate Blood Pressure 98/70 O2 Sat by Pulse 98 Oximetry Physical Exam General: Alert and oriented, no acute distress Lungs: Clear to auscultation bilaterally Heart: Regular rate and rhythm Abdomen: Soft, minimal appropriate tenderness, non-distended, fundus midline, nontender, and at the umbilicus Extremities: Trace edema in bilateral lower extremities to mid shins ASSESSMENT: Gabriela Puente is a 24-year-old -0-0-1 status post , PPD #2 complicated by GBS positive and received 3 doses of ampicillin prior to delivery, chlamydia infection during second trimester of , maternal obesity, COVID-19 infection during second trimester of and infant with vaginal cyst versus imperforate hymen noted at time of delivery PLAN: Doing well Breast-feeding and pumping breastmilk without difficulty. Assist and work with patient as needed Lochia minimal. Continue to monitor for appropriate lochia. Continue routine care Discharge home today Kevan Lemons MD 8:39 AM 02/17/2020
--- NOTE | 2020-02-17 08:44 | PCM.DCSUM1 ---
Discharge Summary - Hospital Course Free Text/Narrative:: - General Info Date of Service: 02/15/20 Mother's Due Date: 02/19/20 - Delivery Note Labor: Augmented by ARM, Induced by Oxytocin Delivery Outcome: Livebirth Infant Delivery Method: Spontaneous Vaginal Delivery-Single Presentation: Right Occiput Anterior (JENNA) Nuchal Cord: None Anesthesia Type: Epidural Amniotic Fluid Description: Clear Episiotomy Type: None Laceration: 2nd Degree (left perineal, repaired with 3-0 Vicryl), Labial (bilateral medial labial, hemostatic, not repaired) Suture type: Vicryl Suture size: 3-0 Placenta: Intact, Spontaneous Cord: 3 Vessels Estimated Blood Loss: 300 Resuscitation Needed: Yes : Suctioned, Bulb Syringe, Stimulated, Warmed, Davis Used, Warmer Used Provider: Kevan Lemons Score 1 min: 5 Score 5 min: 9 Second Stage Interventions: Reports: Pushing Effectively, Pushing, Stirrups/Leg Supports Delivery Comments (Free Text/Narrative):: Stage I: Gabriela Puente was admitted for elective induction of labor. On admission her cervix was dilated to 4 to 5 cm. She was GBS positive and was started on ampicillin for GBS prophylaxis. She received a total of 3 doses prior to delivery. She was started on Pitocin for induction of labor. She was given an epidural for anesthesia. She had artificial rupture of membranes with return of clear fluid. She progressed to complete and pushing. Stage II: On 02/15/2020 she had a normal vaginal delivery of a live female infant at 17:47. Apgars of 5 & 9. Weight of 2940 g (6 lbs 7.7 oz). Length of 20.5 inches. There was no nuchal cord. Infant was delivered in JENNA position. The cord was doubly clamped and cut by other the infant. was placed on mother's abdomen initially and then taken to the warmer for further resuscitation. Stage III: She had a spontaneous delivery of an intact placenta in Damian presentation. Three vessel cord. She was given pitocin and fundal massage. She had a second-degree left perineal laceration that was repaired with 3-0 Vicryl. She had bilateral medial labial lacerations that were hemostatic and not repaired. Mom and baby were stable to recovery. Chief Of Police, Dr. 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 EBL of 300 mL. Diagnosis: Stroke: No - Discharge Data Discharge Date: 02/17/20 Discharge Disposition: Home, Self-Care 01 Condition: Good - Referral to Home Health Primary Care Physician: Kevan Lemons MD - Discharge Diagnosis/Problem(s) (1) 39 weeks gestation of SNOMED Code(s): 71298512 ICD Code: Z3A.39 - 39 WEEKS GESTATION OF Status: Acute Current Visit: Yes (2) GBS (group B Streptococcus carrier), +RV culture, currently SNOMED Code(s): 3279195201372, 914424778, 6784987540107 ICD Code: O99.820 - STREPTOCOCCUS B CARRIER STATE COMPLICATING Status: Acute Current Visit: Yes (3) Chlamydia infection affecting in second trimester SNOMED Code(s): 5576833959186 ICD Code: O98.812 - OTH MATERNAL INFEC/PARASTC DISEASES COMP PREG, SECOND TRI; A74.9 - CHLAMYDIAL INFECTION, UNSPECIFIED Status: Acute Current Visit: Yes (4) Obesity affecting SNOMED Code(s): 132314441467, 015264455629 ICD Code: O99.210 - OBESITY COMPLICATING , UNSPECIFIED TRIMESTER Status: Acute Current Visit: Yes (5) COVID-19 affecting in second trimester SNOMED Code(s): 355857054, 056115115 ICD Code: O98.512 - OTH VIRAL DISEASES COMPLICATING , SECOND TRIMESTER; U07.1 - COVID-19 Status: Acute Current Visit: Yes (6) Vaginal delivery SNOMED Code(s): 449342237 ICD Code: O80 - ENCOUNTER FOR FULL-TERM UNCOMPLICATED DELIVERY Status: Acute Current Visit: Yes (7) Second degree perineal laceration during delivery SNOMED Code(s): 3411829 ICD Code: O70.1 - SECOND DEGREE PERINEAL LACERATION DURING DELIVERY Status: Acute Current Visit: Yes - Patient Summary/Data Complications: None Consults: None Hospital Course: Gabriela Puente was admitted for elective induction of labor. On admission her cervix was dilated to 4-5 cm. She was GBS positive and was started on ampicillin for GBS prophylaxis. She received a total of 3 doses prior to delivery. She was given pitocin for augmentation. She was given an epidural for anesthesia. She had artificial rupture of membranes with clear fluid. She progressed to complete and began pushing. On 02/15/2020 she had a normal vaginal delivery of a live female infant at 17:47. Apgars of 5 and 9. Weight of 2940 g (6 pounds 7.7 ounces). Her course was uneventful. Her pain was well controlled and she had minimal lochia. She was ambulating, tolerating a regular diet and voiding normally. She was breast-feeding and pumping breastmilk with minimal difficulty. She was afebrile and her hematocrit was 38.8 on admission. She desired to be discharged home on the morning of PPD #2. Her blood type is O+. was diagnosed with vaginal cyst versus imperforate hymen at time of delivery. Patient will have evaluated further after the is discharged from the hospital. - Patient Instructions Diet: Regular Diet as Tolerated Activity: Apply Ice, As Tolerated Activity, Other: Nothing in the vagina for 6 weeks Driving: May Drive Today Showering/Bathing: May Shower Notify Provider of: Fever, Increased Pain, Swelling and Redness, Drainage, Nausea and/or Vomiting Other/Special Instructions: Please contact your physician's office if you have heavy vaginal bleeding enough to soak a pad in less than an hour for several hours. Monitor for any signs of an infection in the breasts with severe pain or redness of the breast. - Discharge Plan *PRESCRIPTION DRUG MONITORING PROGRAM REVIEWED*: Not Applicable *COPY OF PRESCRIPTION DRUG MONITORING REPORT IN PATIENT SUZY: Not Applicable Home Medications: Home Meds Vit with Ca/FA/Iron [ Plus Iron] 1 .ROUTE DAILY 02/15/20 [History] Acetaminophen [Tylenol] 650 mg PO Q6H PRN tablet 02/17/20 [Rx] Benzocaine/Menthol [Dermoplast Pain Relief [place]] 1 spray TOP ASDIRECTED PRN canister 02/17/20 [Rx] Docusate Sodium [Colace] 100 mg PO BID PRN cap 02/17/20 [Rx] Hydrocortisone Acetate [Anucort-HC] 25 mg RECTAL BID PRN supp 02/17/20 [Rx] Ibuprofen [Motrin] 600 mg PO Q6H PRN tablet 02/17/20 [Rx] witch Zoey [Ranjeet] 1 pad TOP ASDIRECTED PRN pad 02/17/20 [Rx] Patient Handouts: Care of a Perineal Tear, Care After Vaginal Delivery Referrals: Kevan Lemons MD [Primary Care Provider] - (Follow-up in 2 weeks for routine visit or earlier as needed.) - Discharge Summary/Plan Comment DC Time >30 min.: No - Patient Data Vitals - Most Recent: Last Vital Signs Temp 36.7 C 02/17/20 05:00 Pulse 88 02/17/20 05:00 Resp 16 02/17/20 05:00 BP 98/70 02/17/20 05:00 Pulse Ox 98 02/17/20 05:00 Weight - Most Recent: 104.326 kg Med Orders - Current: Current Medications Acetaminophen (Tylenol) 650 mg PO Q6H PRN PRN Reason: mild pain or fever Benzocaine/Menthol (Dermoplast Pain Relief [place]) 0 gm TOP ASDIRECTED PRN PRN Reason: Perineal Comfort Measure Last Admin: 02/15/20 19:16 Dose: 1 canister Documented by: Docusate Sodium (Colace) 100 mg PO BID PRN PRN Reason: Constipation Hydrocortisone Acetate (Anucort-Hc) 25 mg RECTAL BID PRN PRN Reason: Hemorrhoid pain Oxytocin/Lactated Ringer's (Pitocin In Lr 10 Units/1,000 Ml) 10 unit in 1,000 mls @ 100 mls/hr IV TITRATE SAKINA; Protocol Ibuprofen (Motrin) 600 mg PO Q6H PRN PRN Reason: Mild pain or fever Last Admin: 02/17/20 07:44 Dose: 600 mg Documented by: Magnesium Hydroxide (Milk Of Magnesia) 30 ml PO BEDTIME PRN PRN Reason: Constipation Prenat Multivit/[place]/Iron/Folic Ac ( Plus Iron) 1 each PO DAILY SAKINA Last Admin: 02/16/20 08:48 Dose: 1 each Documented by: Sarah Mclain) 1 pad TOP ASDIRECTED PRN PRN Reason: Perineal Comfort Measure Last Admin: 02/15/20 19:15 Dose: 1 tub Documented by: Discontinued Medications Acetaminophen (Tylenol) 650 mg PO Q6H PRN PRN Reason: Pain (Mild 1-3) and fever Bupivacaine HCl (Sensorcaine-Mpf 0.25%) 10 ml .ROUTE .STK-MED ONE Stop: 02/15/20 00:01 Diphenhydramine HCl (Benadryl) 25 mg IVPUSH Q6H PRN PRN Reason: pruritis Diphenhydramine HCl (Benadryl) 25 mg IVPUSH Q6H PRN PRN Reason: pruritis Ephedrine Sulfate (Ephedrine Sulfate) 5 mg IVPUSH ASDIRECTED PRN PRN Reason: Hypotension Ephedrine Sulfate (Ephedrine Sulfate) 5 mg IVPUSH ASDIRECTED PRN PRN Reason: Hypotension Fentanyl (Sublimaze) 100 mcg EPIDUR Q3H PRN PRN Reason: Pain Last Admin: 02/15/20 12:05 Dose: 100 mcg Documented by: Fentanyl (Sublimaze) 100 mcg EPIDUR Q3H PRN PRN Reason: Pain Fentanyl/Bupivacaine HCl (Fentanyl/Bupivacaine/Ns 2 Mcg-0.125% 100 Ml) 100 ml EPIDUR ASDIRECTED PRN PRN Reason: Pain Last Admin: 02/15/20 12:05 Dose: 100 ml Documented by: Fentanyl/Bupivacaine HCl (Fentanyl/Bupivacaine/Ns 2 Mcg-0.125% 100 Ml) 100 ml EPIDUR ASDIRECTED PRN PRN Reason: Pain Lactated Ringer's (Ringers, Lactated) Confirm Administered Dose 1,000 mls @ as directed .ROUTE .STK-MED ONE Stop: 02/15/20 07:31 Last Admin: 02/15/20 08:27 Dose: Not Given Documented by: Lactated Ringer's (Ringers, Lactated) 1,000 mls @ 100 mls/hr IV ASDIRECTED [facility] Last Admin: 02/15/20 14:25 Dose: 100 mls/hr Documented by: Ampicillin Sodium 2 gm/ Sodium (Chloride) 100 mls @ 200 mls/hr IV ONETIME ONE Stop: 02/15/20 08:07 Last Admin: 02/15/20 08:32 Dose: 200 mls/hr Documented by: Ampicillin Sodium 1 gm/ Sodium (Chloride) 50 mls @ 100 mls/hr IV Q4H [facility] Last Admin: 02/15/20 15:59 Dose: 100 mls/hr Documented by: Oxytocin/Lactated Ringer's (Pitocin In Lr 10 Units/1,000 Ml) 10 unit in 1,000 mls @ 12 mls/hr IV TITRATE SAKINA; Protocol Last Titration: 02/15/20 11:16 Dose: 10 munits/min, 60 mls/hr Documented by: Oxytocin/Lactated Ringer's (Pitocin In Lr 10 Units/1,000 Ml) 10 unit in 1,000 mls @ 100 mls/hr IV .CONTINUOUS SAKINA Nalbuphine HCl (Nubain) 10 mg IVPUSH Q2H PRN PRN Reason: Pain Sodium Chloride (Saline Flush) 10 ml FLUSH ASDIRECTED PRN PRN Reason: Keep Vein Open
[2020-02-17] MEDS: Prenatal Multivitamin with Calcium/Folic Acid/Iron Tab PO SCH (09:07)
== END 2020-02-17 15:45 | disposition home or self-care (01) | DRG 560 ==
LOC: UNDOADMOB 07:03 → JD.OB 07:03 → OBSVTOIN 15:47 → INTOOBSV 15:47 → JD.OB 15:48 → OBSVTOIN 17:47
PROVIDERS: ADMIT Obstetrics & Gynecology; ATTEND Obstetrics & Gynecology
PROC: 10E0XZZ Delivery of Products of Conception, External Approach (ICD-10-PCS; principal; 2020-02-15)
PROC: 10907ZC Drainage of Amniotic Fluid, Therapeutic from Products of Conception, Via Natural or Artificial Opening (ICD-10-PCS; 2020-02-15)
PROC: 3E033VJ Introduction of Other Hormone into Peripheral Vein, Percutaneous Approach (ICD-10-PCS; 2020-02-15)
PROC: 0KQM0ZZ Repair Perineum Muscle, Open Approach (ICD-10-PCS; 2020-02-15)
DX: O99.824 Streptococcus B carrier state complicating childbirth (principal); Z37.0 Single live birth; O99.214 Obesity complicating childbirth; E66.9 Obesity, unspecified; O70.1 Second degree perineal laceration during delivery; Z20.828 Contact with and (suspected) exposure to other viral communicable diseases; Z3A.39 39 weeks gestation of pregnancy
CPT/HCPCS: 36415; 51703; 59025; 59409; 80053; 82570; 84156; 85025; 86592; A9270-GY; J0290; J2590; J3010; J3490; J7050; J7120; U0002

== ENCOUNTER 2023-11-17 12:42 | Inpatient (IN) | payer BC ==
[~2023-11-17 12:42] MED LIST changes: +Lidocaine 2% with EPINEPHrine 1:200,000 20 ML SDV ONE
[2023-11-17] MEDS ORDERED: Lidocaine 1% 50 ML MDV INJECT PRN (13:02)
[2023-11-17] MEDS ORDERED: Sodium Chloride 0.9% 10 ML Syringe FLUSH PRN (13:02)
[2023-11-17] MEDS: Lactated Ringers 1,000 ML IV SCH (13:21)
[2023-11-17] MEDS: Ampicillin 2 GM in Sodium Chloride 0.9% 100 ML IV ONE (13:21)
[2023-11-17 13:27] LABS: BASOPHILS ABSOLUTE AUTO 0.1 K/mm3 (0.0-0.2); BASOPHILS PERCENT AUTO 0.4 % (0.0-1.0); EOSINOPHILS ABSOLUTE AUTO 0.1 K/mm3 (0.0-0.4); EOSINOPHILS PERCENT AUTO 0.4 % (0.0-6.0); HEMATOCRIT 41.8 % (37.0-47.0); HEMOGLOBIN 14.3 gm/dl (12.0-16.0); IMMATURE GRAN ABSOLUTE AUTO 0.16 K/mm3 (0.00-0.05); IMMATURE GRAN PERCENT AUTO 1.2 % (0.0-0.4); LYMPHOCYTES ABSOLUTE AUTO 2.4 K/mm3 (1.0-4.8); LYMPHOCYTES PERCENT AUTO 17.2 % (24.0-44.0); MEAN CORPUSCULAR HGB CONC 34.2 g/dl (32.0-36.0); MEAN CORPUSCULAR VOLUME 90.7 fl (83.0-99.0); MEAN PLATELET VOLUME 10.2 fl (9.4-12.3); MONOCYTES PERCENT AUTO 7.4 % (0.0-8.0); NEUTROPHILS ABSOLUTE AUTO 10.1 K/mm3 (1.8-7.7); NEUTROPHILS PERCENT AUTO 73.4 % (41.0-71.0); PLATELET COUNT,PLT 324 K/mm3 (150-400); RED BLOOD CELL COUNT 4.61 M/mm3 (4.10-5.30); WHITE BLOOD CELL COUNT,WBC 13.76 K/mm3 (3.9-11.3)
[2023-11-17] MEDS ORDERED: ePHEDrine 50 MG/ML SDV IVPUSH PRN (13:49)
[2023-11-17] MEDS ORDERED: diphenhydrAMINE 50 MG/ML SDV IVPUSH PRN (13:49)
[2023-11-17] MEDS: Bupivacaine/fentaNYL/NS 100 ML Bag EPIDUR PRN (13:56)
[2023-11-17] MEDS: fentaNYL 100 MCG/2 ML SDV EPIDUR PRN (13:56)
[2023-11-17] MEDS: Ampicillin 1 GM in Sodium Chloride 0.9% 100 ML IV SCH (17:18)
[2023-11-17] MEDS: Oxytocin/0.9 % Sodium Chloride 30 UNIT/500 ML BAG IV SCH (17:28)
[2023-11-17] MEDS ORDERED: Oxytocin/0.9 % Sodium Chloride 30 UNIT/500 ML BAG IV SCH (17:30)
[2023-11-17] MEDS ORDERED: Sodium Chloride 0.9% 10 ML Syringe FLUSH SCH (21:00)
[2023-11-17] MEDS ORDERED: Magnesium Hydroxide 400 MG/5 ML Susp 30 ML Cup PO PRN (22:04)
[2023-11-17] MEDS ORDERED: Hydrocortisone Acetate 25 MG Supp RECTAL PRN (22:04)
[2023-11-17] MEDS ORDERED: Oxytocin/Lactated Ringers 30 UNIT/500 ML BAG IV SCH (22:04)
[2023-11-17] MEDS ORDERED: Docusate Sodium 100 MG Cap PO PRN (22:04)
[2023-11-17] MEDS: Benzocaine/Menthol 20%-0.5% Spray 78 GM Cannister TOP PRN (22:53)
[2023-11-17] MEDS: Witch Hazel Medicated Pads 40/Jar TOP PRN (22:53)
[2023-11-17] MEDS: Ibuprofen 600 MG Tab PO SCH (23:15)
[2023-11-18] MEDS: Acetaminophen 325 MG Tab PO PRN (03:32)
[2023-11-18] MEDS: Prenatal Multivitamin with Calcium/Folic Acid/Iron Tab PO SCH (09:15)
[2023-11-18] MEDS: Simethicone 80 MG Tab.Chew PO PRN (20:12)
== END 2023-11-19 11:16 | disposition home or self-care (01) | DRG 560 ==
LOC: JD.OBCHECK 12:42 → JD.OB 12:45 → JD.OBCHECK 13:04 → OBSVTOIN 20:42 → JD.OB 20:43
PROVIDERS: ADMIT Obstetrics & Gynecology; ATTEND Obstetrics & Gynecology
PROC: 10E0XZZ Delivery of Products of Conception, External Approach (ICD-10-PCS; principal; 2023-11-17)
PROC: 0HQ9XZZ Repair Perineum Skin, External Approach (ICD-10-PCS; 2023-11-17)
PROC: 3E0R3BZ Introduction of Anesthetic Agent into Spinal Canal, Percutaneous Approach (ICD-10-PCS; 2023-11-17)
PROC: 00HU33Z Insertion of Infusion Device into Spinal Canal, Percutaneous Approach (ICD-10-PCS; 2023-11-17)
DX: O99.824 Streptococcus B carrier state complicating childbirth (principal); Z37.0 Single live birth; Z3A.39 39 weeks gestation of pregnancy; O69.81X0 Labor and delivery complicated by cord around neck, without compression, not applicable or unspecified; O42.02 Full-term premature rupture of membranes, onset of labor within 24 hours of rupture; O70.0 First degree perineal laceration during delivery
CPT/HCPCS: 36415; 51702; 59025; 59409; 85025; 86592; 86850; 86900; 86901; A9270-GY; J0290; J0665; J3010; J3490; J7120; J7999